=== PATIENT | male | born 1995 | race Caucasian/White ===

== ENCOUNTER 2021-06-11 20:33 | Emergency (ER) | payer OTHER ==
[~2021-06-11] VITALS: Ht 203.2 cm; Wt 154.2 kg
[2021-06-11 22:12] VITALS: BP 144/79
== END 2021-06-11 22:13 | disposition home or self-care (01) ==
LOC: M.ERS 20:33
DX: S61.212A Laceration without foreign body of right middle finger without damage to nail, initial encounter (principal); F17.210 Nicotine dependence, cigarettes, uncomplicated; Z88.0 Allergy status to penicillin; W26.0XXA Contact with knife, initial encounter; Y93.89 Activity, other specified; Y92.89 Other specified places as the place of occurrence of the external cause; Y99.0 Civilian activity done for income or pay